=== PATIENT | male | born 1980 | race Caucasian/White ===

== ENCOUNTER 2021-09-04 23:24 | Emergency (ER) | payer SELFPAY ==
[~2021-09-04] VITALS: Ht 182.9 cm; Wt 74.8 kg
--- NOTE | 2021-09-05 00:57 | NUR ---
pt in room 1b c/o bilat eye pain.
[2021-09-05] MEDS ORDERED: TETRACAINE HCL 0.5% OPHT DROP 2 ML BOTTLE OP ONE (01:15)
[2021-09-05] MEDS ORDERED: FLUORESCEIN SODIUM 1 MG STRIP OP ONE (01:15)
[2021-09-05] MEDS ORDERED: FLUORESCEIN SODIUM 1 MG STRIP ONE (01:28)
[2021-09-05] MEDS ORDERED: TETRACAINE HCL 0.5% OPHT DROP 2 ML BOTTLE ONE (01:29)
[2021-09-05] MEDS ORDERED: HYDR-4209 PO (01:56)
[2021-09-05] MEDS ORDERED: ONDA4TAB5 PO (01:56)
[2021-09-05] MEDS ORDERED: ACETAMINOPHEN ES 500 MG TABLET PO ONE (02:00)
[2021-09-05] MEDS ORDERED: HYDROCODONE/APAP 5-325MG TABLET PO ONE (02:00)
[2021-09-05] MEDS ORDERED: ONDANSETRON ODT 4 MG TAB.RAPDIS SL ONE (02:00)
[2021-09-05] MEDS ORDERED: ONDANSETRON ODT 4 MG TAB.RAPDIS ONE (02:08)
[2021-09-05] MEDS ORDERED: ACETAMINOPHEN ES 500 MG TABLET ONE (02:08)
[2021-09-05] MEDS ORDERED: HYDROCODONE/APAP 5-325MG TABLET ONE (02:08)
[2021-09-05 02:16] VITALS: BP 135/77
--- NOTE | 2021-09-05 02:16 | NUR ---
Patient discharged to home in stable condition. Written and verbal after care instructions given. Patient verbalizes understanding of instructions. Stressed follow up or return to ER for worsening s/s.
== END 2021-09-05 02:18 | disposition home or self-care (01) ==
LOC: ER 23:41
DX: H18.823 Corneal disorder due to contact lens, bilateral (principal); R51.9 Headache, unspecified; R03.0 Elevated blood-pressure reading, without diagnosis of hypertension
CPT/HCPCS: A4663; A9150; Q0162